=== PATIENT | female | born 1930 | race Caucasian/White ===

== ENCOUNTER → 2018-05-14 | Outpatient (CLI) | payer MEDICARE | END | disposition home or self-care (01) | LOC: CVU 13:02 | PROVIDERS: ATTEND Family Medicine | DX: I08.3 Combined rheumatic disorders of mitral, aortic and tricuspid valves (principal); I48.91 Unspecified atrial fibrillation; I10 Essential (primary) hypertension; E11.9 Type 2 diabetes mellitus without complications; E78.5 Hyperlipidemia, unspecified; Z87.891 Personal history of nicotine dependence | CPT/HCPCS: 93306 ==

== ENCOUNTER → 2019-05-02 | Outpatient (CLI) | payer MEDICARE ==
[~2019-05-02] MED LIST: REGADENOSON 0.4 MG/5 ML SYRINGE ONE
== END | disposition home or self-care (01) ==
LOC: CFH 06:34
PROVIDERS: ATTEND Internal Medicine Cardiovascular Disease
DX: I08.3 Combined rheumatic disorders of mitral, aortic and tricuspid valves (principal); I11.9 Hypertensive heart disease without heart failure; E78.5 Hyperlipidemia, unspecified; E11.9 Type 2 diabetes mellitus without complications; I48.0 Paroxysmal atrial fibrillation; Z72.0 Tobacco use
CPT/HCPCS: 78452; 93017; 93306; A9502; J2785

== ENCOUNTER 2019-06-20 11:29 | Day surgery (SDC) | payer MEDICARE ==
[~2019-06-20] VITALS: Ht 156.2 cm; Wt 68.1 kg
[~2019-06-20 11:29] MED LIST changes: +ATEN25TA PO; +CEFD300C37 PO; +DOXY100T23 PO; +ERGO400T3 PO; +GLIP5TAB10 PO; +HYDROCHLOROQUINE PO; +INSU100I13 SQ-INSULIN; +LIDO700A20 TD; +LOSA25TA25 PO; +LOVA10TA PO; +MAGN70TA2 PO; +METO50TA82 PO; +OXYB5TAB10 PO; +PANT20TA3 PO; +PRED1TAB19 PO; +PRED2.5T PO; +PRED5TAB PO; +PREG50CA PO; -REGADENOSON 0.4 MG/5 ML SYRINGE ONE; +RIVA10TA2 PO; +RIVA15TA PO; +RIVA20TA PO
[2019-06-20] MEDS ORDERED: SODIUM CHLORIDE 0.9% 1,000 ML IV SCH ×2 (11:47→13:39)
[2019-06-20 12:03] VITALS: BP 138/59
[2019-06-20] MEDS ORDERED: METO50TA82 PO (12:15)
[2019-06-20] MEDS ORDERED: LOSA25TA25 PO (12:15)
[2019-06-20] MEDS ORDERED: HYDR200T72 PO (12:17)
[2019-06-20 12:26] LABS: BASOPHILS % (AUTO) 0 % (0-1); EOSINOPHILS # (AUTO) 0.04 x10^3/uL (0-0.4); EOSINOPHILS % (AUTO) 0 % (1-7); LYMPHOCYTES # (AUTO) 0.55 x10^3/uL (1-3.4); LYMPHOCYTES % (AUTO) 5 % (22-44); MD NO; MEAN CORPUSCULAR HEMOGLOBIN 28.7 pg (27.0-34.8); MEAN CORPUSCULAR HGB CONC 31.9 g/dL (32.4-35.8); MEAN CORPUSCULAR VOLUME 89.8 fL (80-100); MEAN PLATELET VOLUME 8.1 fL (7.4-10.4); MONOCYTES % (AUTO) 10 % (2-9); NEUTROPHILS # (AUTO) 10.17 x10^3/uL (1.8-6.8); NEUTROPHILS % (AUTO) 85 % (42-75); PLATELET COUNT 282 x10^3/uL (130-400); RED BLOOD COUNT 4.09 x10^6/uL (3.82-5.3); RED CELL DISTRIBUTION WIDTH 20.1 % (9.6-15.2)
[2019-06-20 12:32] LABS: ANION GAP 7 mmol/L (5-15); CALCIUM 9.3 mg/dL (8.5-10.1); CHLORIDE 107 mmol/L (98-107); CREATININE 0.97 mg/dL (0.55-1.02)
[2019-06-20] MEDS ORDERED: FENTANYL PF 100 MCG/2ML ONE (13:00)
[2019-06-20] MEDS ORDERED: MIDAZOLAM 1 MG/ML, 2ML ONE (13:00)
[2019-06-20] MEDS ORDERED: HEPARIN 1,000 UNITS/ML, 10ML ONE (13:01)
[2019-06-20] MEDS ORDERED: VERAPAMIL 2.5 MG/ML, 2ML ONE (13:01)
[2019-06-20] MEDS ORDERED: LIDOCAINE-MPF 1%, 5ML ONE (13:01)
[2019-06-20] MEDS ORDERED: PLEASE ENTER ALLERGIES MC SCH (14:00)
== END 2019-06-20 15:57 | disposition home or self-care (01) ==
LOC: CACL 11:29
PROVIDERS: ATTEND Internal Medicine Cardiovascular Disease
DX: I35.0 Nonrheumatic aortic (valve) stenosis (principal); I48.0 Paroxysmal atrial fibrillation; I10 Essential (primary) hypertension; E11.9 Type 2 diabetes mellitus without complications; E78.5 Hyperlipidemia, unspecified; G47.30 Sleep apnea, unspecified; Z79.01 Long term (current) use of anticoagulants; Z79.84 Long term (current) use of oral hypoglycemic drugs; Z79.899 Other long term (current) drug therapy; Z87.891 Personal history of nicotine dependence; Z88.5 Allergy status to narcotic agent
CPT/HCPCS: 36415; 80048; 85025; 93454; 99156; C1769; C1894; J1644; J2250; J3010; Q9967